=== PATIENT | male | born 1990 | race Caucasian/White ===

== ENCOUNTER 2023-07-22 13:17 | Emergency (ER) | payer OTHER ==
[~2023-07-22] VITALS: Ht 188 cm; Wt 83.9 kg
[2023-07-22 13:48] VITALS: BP 139/100
[2023-07-22 15:02] LABS: Influenza A, PCR NEGATIVE (NEGATIVE); Resp Syncytial Virus, PCR NEGATIVE (NEGATIVE); SARS-Cov-2 (COVID-19) PCR, MMC NEGATIVE (NEGATIVE)
[2023-07-22 15:21] LABS: Influenza B, PCR POSITIVE (NEGATIVE)
== END 2023-07-22 15:33 | disposition home or self-care (01) ==
LOC: ER 13:17
PROVIDERS: Student in an Organized Health Care Education/Training Program
DX: J10.1 Influenza due to other identified influenza virus with other respiratory manifestations (principal); Z88.2 Allergy status to sulfonamides
CPT/HCPCS: 0241U; 99284